=== PATIENT | male | born 1990 | race Hispanic/Latino ===

== ENCOUNTER 2025-04-10 07:58 | Emergency (ER) | payer OTHER ==
[~2025-04-10] VITALS: Ht 170.2 cm; Wt 81.6 kg
[2025-04-10 08:02] VITALS: PULSE 63; RESP 18; TEMP 97.8; O2SAT 100
== END 2025-04-10 08:46 | disposition home or self-care (01) ==
LOC: ER 08:33
DX: S61.211A Laceration without foreign body of left index finger without damage to nail, initial encounter (principal); W26.8XXA Contact with other sharp object(s), not elsewhere classified, initial encounter; Y92.89 Other specified places as the place of occurrence of the external cause; F17.210 Nicotine dependence, cigarettes, uncomplicated
CPT/HCPCS: 99282